=== PATIENT | male | born 1960 | race Caucasian/White ===

== ENCOUNTER 2019-04-21 04:36 | Outpatient (CLI) | payer SELFPAY ==
[2019-04-20 08:55] LABS: HEMOGLOBIN A1C 5.2 % (4.5-6.2)
[2019-04-20 09:04] LABS: CHOL/HDL RATIO 2.23 (0.00-4.99)
[~2019-04-21 04:36] MED LIST: CYCL-1 PO; DIAZ5TAB PO
== END 2019-04-21 23:59 | disposition home or self-care (01) ==
LOC: HW HEART 04:36
DX: I25.10 Atherosclerotic heart disease of native coronary artery without angina pectoris (principal); Z86.74 Personal history of sudden cardiac arrest
CPT/HCPCS: 36415